=== PATIENT | female | born 1965 | race Caucasian/White ===

== ENCOUNTER 2020-02-25 09:44 | Day surgery (SDC) | payer OTHER ==
[2020-02-24 12:57] VITALS: BMI 25.6
[~2020-02-25 09:44] MED LIST: LACTATED RINGERS 1,000 ML IV SCH
[2020-02-25 10:07] VITALS: RESP 16; TEMP 98.4
[2020-02-25] MEDS ORDERED: LIDOCAINE 1% (10MG/ML) FOR IV START INTRADERMA ONE (10:10)
[2020-02-25 10:17] LABS: Glucose,Whole Blood 94 mg/dL (75-99)
[2020-02-25] MEDS ORDERED: MIDAZOLAM 2 MG/2 ML VIAL ONE (10:18)
[2020-02-25] MEDS ORDERED: IOPAMIDOL M200 10 ML VIAL ONE (10:18)
[2020-02-25] MEDS ORDERED: DEXAMETHASONE SOD PHOSPHATE 10 MG/ML 1 ML VIAL ONE (10:18)
[2020-02-25] MEDS ORDERED: fentaNYL (PF) 50 MCG/ML 2 ML AMP ONE (10:18)
--- NOTE | 2020-02-25 10:37 | P.PCN ---
Date of Procedure: 02/25/20 Surgeon: Vicente Albert Pathology: none sent Condition: stable Disposition: PACU Description of Procedure: PROCEDURE 1. Cervical epidural steroid injection under fluoroscopic guidance, C7-T1 Rt paramedian approach. 2. Cervical epidurogram. : PREOPERATIVE DIAGNOSIS: Cervical radiculopathy, cervical spondylosis without myelopathy POSTOPERATIVE DIAGNOSIS: : Same as above ANESTHESIA: Local anesthesia with 1% lidocaine and IV moderate conscious sedation with Versed and Fentanyl . EBL 0 PROCEDURE INDICATION: The patient with neck pain and radiculopathy unresponsive to conservative treatment consents for procedure. PROCEDURE DESCRIPTION / TECHNIQUE: The patient was seen and identified in the preoperative area. Risks, benefits, complications, including but not limited to infections ,bleeding , allergic reactions to the medications ,and not complete pain relief, and alternatives were discussed with the patient, the patient agreed to proceed with the procedure and signed the consent. Patient was taken to the OR and time out was completed. The patient was placed in the prone position on the procedure table. A pillow was placed under the patients chest to increase the flexion of the cervical spine . The cervical area was prepped and draped in the usual sterile fashion. Vital signs were closely monitored during the procedure. Conscious sedation was used during the procedure to decrease patients anxiety. Using anterior-posterior fluoroscopy, the C7-T1 interlaminar space was identified and the skin over this site was marked and then infiltrated with 1% lidocaine subcutaneously. Subsequently, a 20-gauge 3-1/2-inch Tuohy epidural needle was inserted and advanced toward the epidural space by means of loss of resistance to air technique and guided by AP and lateral fluoroscopy. The needle tip contacted the lamina of T1 vertebra first, then it was walked off bone and into the epidural space using the loss of to air and fluoroscopic guidance to identify the epidural space. The correct needle position in the epidural space was verified with the injection of 1 mL of the water soluble contrast dye Isovue and observing an excellent epidurogram with the epidural spread of the dye, after negative aspiration for blood and CSF and in the absence of paresthesias. Again after negative aspiration, I injected a 20 mg of Decadron. A washout of epidurogram was seen. Needle was withdrawn intact, skin was cleansed, and bandages were applied. A copy of the needle placement picture was saved to the fluoroscopy machine.
[2020-02-25] MEDS ORDERED: IV FLUID CONTINUATION 1,000 ML IV ONE (10:38)
--- NOTE | 2020-02-25 10:47 | FL ---
EXAMINATION TYPE: FL guided pain mgmt statistic DATE OF EXAM: 02/25/2020 HISTORY: Pain epidural injection was performed. 5 seconds of fluoroscopic time was provided by the department of r adiology.
[2020-02-25 10:56] VITALS: BP 124/68; PULSE 55
== END 2020-02-25 11:07 | disposition home or self-care (01) ==
LOC: ORPAIN 09:44
PROVIDERS: ATTEND Anesthesiology
DX: M47.12 Other spondylosis with myelopathy, cervical region (principal); I25.10 Atherosclerotic heart disease of native coronary artery without angina pectoris; E11.9 Type 2 diabetes mellitus without complications; F17.200 Nicotine dependence, unspecified, uncomplicated; Z90.710 Acquired absence of both cervix and uterus; Z79.02 Long term (current) use of antithrombotics/antiplatelets; Z88.1 Allergy status to other antibiotic agents
CPT/HCPCS: 62321; J2250; J1100; J3010; Q9966; 99152

== ENCOUNTER 2020-04-07 09:04 | Day surgery (SDC) | payer OTHER ==
[2020-04-06 10:35] VITALS: BMI 25.6
[2020-04-07 09:32] VITALS: RESP 16; TEMP 96.9
[2020-04-07] MEDS ORDERED: LIDOCAINE 1% (10MG/ML) FOR IV START INTRADERMA ONE (09:37)
[2020-04-07 09:39] LABS: Glucose,Whole Blood 125 mg/dL (75-99)
[2020-04-07] MEDS ORDERED: DEXAMETHASONE SOD PHOSPHATE 10 MG/ML 1 ML VIAL ONE (10:13)
[2020-04-07] MEDS ORDERED: MIDAZOLAM 2 MG/2 ML VIAL ONE (10:13)
[2020-04-07] MEDS ORDERED: IOPAMIDOL M200 10 ML VIAL ONE (10:13)
[2020-04-07] MEDS ORDERED: fentaNYL (PF) 50 MCG/ML 2 ML AMP ONE (10:13)
--- NOTE | 2020-04-07 10:30 | P.PCN ---
Date of Procedure: 04/07/20 Procedure(s) Performed: . PROCEDURE 1. Cervical epidural steroid injection under fluoroscopic guidance, C7-T1 (fluoroscopy images available in the radiology department ) 2. Cervical epidurogram. 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 3-,cervical spondylosis with cervical Facet arthropathy without myelopathy ANESTHESIA: Local anesthesia with lidocaine 1 % , and moderate sedation, with Versed 2 mg and Fentanyl 100 mcg. EBL 0 PROCEDURE INDICATION: The patient with neck pain and radiculitis unresponsive to conservative treatment consents for procedure. PROCEDURE DESCRIPTION / TECHNIQUE: The patient was seen and identified in the preoperative area. Risks, benefits, complications, including but not limited to infections ,bleeding , allergic reactions to the medications ,and not complete pain releife, and alternatives were discussed with the patient, the patient agreed to proceed with the procedure and signed the consent. Patient was taken to the OR and time out was completed. The patient was placed in the prone position on the procedure table. A pillow was placed under the patients chest to increase the cervical interlaminar space. The cervical area was prepped and draped in the usual sterile fashion. Vital signs were closely monitored during the procedure. Conscious sedation was used during the procedure to decrease patients anxiety. Using anterior-posterior fluoroscopy, the C7-T1 interlaminar space was identified and the skin over this site was marked and then infiltrated with 1% lidocaine subcutaneously. Subsequently, a 20-gauge 3-1/2-inch Tuohy epidural needle was inserted and advanced toward the epidural space by means of the ``navas nging-drop technique and guided by AP and lateral fluoroscopy. The correct needle position in the epidural space was verified with the injection of 2 mL of the water soluble contrast dye Isovue-200 and observing an excellent epidurogram with the epidural spread of the dye, after negative aspiration for blood and CSF and in the absence of paresthesias. Again after negative aspiration, mixture containing 20 mg Dexamethasone and 2 ml of preservative- free normal saline injected and a washout of epidurogram was seen. Needle was withdrawn intact, skin was cleansed, and bandages were applied. Complications= none. Disposition= patient was placed in supine position and transferred to the recovery room area in stable condition and there was no evidence of upper or lower extremity motor or sensory deficit after the procedure patient was discharged from recovery room after discharge criteria met and home discharge instructions was given by the staff and patient will follow with the pain clinic in 2-4 weeks
[2020-04-07] MEDS ORDERED: IV FLUID CONTINUATION 500 ML IV ONE (10:38)
[2020-04-07 10:55] VITALS: BP 113/58; PULSE 66
--- NOTE | 2020-04-07 14:23 | FL ---
EXAMINATION TYPE: FL guided pain mgmt statistic DATE OF EXAM: 04/07/2020 CLINICAL HISTORY: Neck pain. TECHNIQUE: Fluoroscopy. COMPARISON: None. FINDINGS: Fluoroscopic guidance was provided during pain relief procedure performed by Dr. Bustos . A total of 1 second of fluoroscopic time was utilized during the procedure and 1 spot images are a cquired. Single limits acquired shows needle localization with contrast injection near cervicothorac ic junction. IMPRESSION: As Above.
== END 2020-04-07 11:05 | disposition home or self-care (01) ==
LOC: ORPAIN 09:04
PROVIDERS: ATTEND Specialist
DX: M47.22 Other spondylosis with radiculopathy, cervical region (principal); M50.10 Cervical disc disorder with radiculopathy, unspecified cervical region; Z79.02 Long term (current) use of antithrombotics/antiplatelets; I25.10 Atherosclerotic heart disease of native coronary artery without angina pectoris; E11.9 Type 2 diabetes mellitus without complications; Z90.710 Acquired absence of both cervix and uterus; Z88.1 Allergy status to other antibiotic agents; Z88.8 Allergy status to other drugs, medicaments and biological substances; Z91.09 Other allergy status, other than to drugs and biological substances
CPT/HCPCS: 62321; J2250; J1100; J3010; Q9966; 99152

== ENCOUNTER → 2020-06-25 | Outpatient (CLI) | payer OTHER ==
[2020-06-25 12:08] LABS: HCT 36.7 % (34.0-46.0); HGB 11.8 gm/dL (11.4-16.0); MCHC 32.1 g/dL (31.0-37.0); MCV 96.5 fL (80.0-100.0); Mean Platelet Volume 7.1; Platelet Count 304 k/uL (150-450); RDW 13.6 % (11.5-15.5); WBC 12.7 k/uL (3.8-10.6)
[2020-06-25 12:17] LABS: Appearance,Urine Clear (Clear); Bilirubin,Urine Negative (Negative); Blood,Urine Negative (Negative); Color,Urine Light Yellow; Glucose,Urine (UA) Negative (Negative); Ketones,Urine Negative (Negative); Leukocyte Esterase,Urine Negative (Negative); Nitrite,Urine Negative (Negative); Protein,Urine Negative (Negative); Specific Gravity,Urine 1.006 (1.001-1.035); Urobilinogen,Urine <2.0 mg/dL (<2.0)
[2020-06-25 12:25] LABS: INR 0.9 (<1.2); Prothrombin Time 9.8 sec (9.0-12.0)
[2020-06-25 12:26] LABS: Partial Thromboplastin Time 25.5 sec (22.0-30.0)
[2020-06-25 12:33] LABS: Calcium 9.6 mg/dL (8.4-10.2); Potassium 4.7 mmol/L (3.5-5.1)
== END | disposition home or self-care (01) ==
LOC: LABPAT 11:24
PROVIDERS: ATTEND Orthopaedic Surgery Orthopaedic Surgery of the Spine
DX: Z01.818 Encounter for other preprocedural examination (principal); M48.02 Spinal stenosis, cervical region
CPT/HCPCS: 80048; 81003; 85027; 85610; 85730

== ENCOUNTER 2020-07-06 06:22 | Day surgery (SDC) | payer OTHER ==
[2020-06-05 14:34] VITALS: BMI 26.5
[~2020-07-06 06:22] MED LIST changes: +LIDOCAINE 1% (10MG/ML) FOR IV START INTRADERMA PRN; +ONDANSETRON 4 MG/2 ML VIAL IVP ONE; +ceFAZolin 1,000 MG in SODIUM CHLORIDE 0.9% IRRIGATIO 1,000 ML IRRIGATION PRN
[2020-07-06] MEDS ORDERED: HYDROmorphone 0.5 MG/0.5 ML SYRINGE IVP PRN ×2 (07:00→09:35)
[2020-07-06 07:02] LABS: Glucose,Whole Blood 135 mg/dL (75-99)
[2020-07-06 07:18] VITALS: RESP 16
[2020-07-06] MEDS ORDERED: fentaNYL (PF) 50 MCG/ML 2 ML AMP ONE (07:21)
[2020-07-06] MEDS ORDERED: ePHEDrine SULFATE/0.9% NACL/PF 50 MG/5 ML SYRINGE IV ONE (07:21)
[2020-07-06] MEDS ORDERED: SUCCINYLCHOLINE CHLORIDE 100 MG/5 ML SYR IV ONE (07:21)
[2020-07-06] MEDS ORDERED: DEXAMETHASONE SOD PHOSPHATE 10 MG/ML 1 ML VIAL ONE (07:21)
[2020-07-06] MEDS ORDERED: GLYCOPYRROLATE 0.2 MG/ML 2 ML VIAL ONE (07:21)
[2020-07-06] MEDS ORDERED: WATER FOR INJECTION, STERILE 10 ML VIAL IV ONE (07:21)
[2020-07-06] MEDS ORDERED: ROCURONIUM 10 MG/ML (5 ML VIAL) IV ONE (07:21)
[2020-07-06] MEDS ORDERED: NEOSTIGMINE 1 MG/ML 10 ML VIAL ONE (07:21)
[2020-07-06] MEDS ORDERED: KETAMINE 10 MG/ML 20 ML VIAL ONE (07:21)
[2020-07-06] MEDS ORDERED: LIDOCAINE 1% INJ 10MG/ML (20 ML MDV) ONE (07:21)
[2020-07-06] MEDS ORDERED: MIDAZOLAM 2 MG/2 ML VIAL ONE (07:21)
[2020-07-06] MEDS ORDERED: PROPOFOL 10 MG/ML 20 ML VIAL IV ONE (07:21)
[2020-07-06] MEDS ORDERED: BUPIVACAINE (PF) 0.25% 30 ML VIAL SQ ONE ×2 (07:55)
[2020-07-06] MEDS ORDERED: LIDOCAINE 2%-EPI 1:100,000 20 ML VIAL SQ ONE ×3 (07:55)
[2020-07-06] MEDS ORDERED: GELATIN SPONGE,ABSORB (LARGE) 1 EACH SPONGE MISCELLANE ONE (07:55)
[2020-07-06] MEDS ORDERED: THROMBIN (BOVINE) 5,000 UNIT VIAL TOPICAL ONE (07:55)
--- NOTE | 2020-07-06 08:27 | XR ---
EXAMINATION TYPE: XR cervical spine 1V DATE OF EXAM: 07/06/2020 COMPARISON: None HISTORY: Needle placement TECHNIQUE: Crosstable lateral cervical spine FINDINGS: There is a needle directed towards the C5-C6 disc level. Patient is intubated. IMPRESSION: 1. Intraoperative localization with needle directed towards the C5-6 level
[2020-07-06] MEDS ORDERED: LACTATED RINGERS 1,000 ML IV ONE (08:34)
--- NOTE | 2020-07-06 09:18 | XR ---
EXAMINATION TYPE: XR cervical spine 1V DATE OF EXAM: 07/06/2020 COMPARISON: 07/06/2020 earlier exam HISTORY: Cervical fusion TECHNIQUE: Stable lateral cervical spine FINDINGS: There is an anterior cervical C5-6. Patient is intubated. IMPRESSION: 1. Status post cervical fusion
[2020-07-06 09:35] VITALS: TEMP 97.7
[2020-07-06] MEDS ORDERED: ACETAMINOPHEN TAB 325 MG TAB PO PRN (09:35)
[2020-07-06] MEDS ORDERED: ONDANSETRON 4 MG/2 ML VIAL IVP PRN (09:35)
[2020-07-06] MEDS ORDERED: BENZOCAINE/MENTHOL LOZENG 1 EACH LOZENGE MUCOUS MEM PRN (09:35)
[2020-07-06] MEDS ORDERED: HYDROmorphone 1 MG/ML 1 ML SYRINGE IVP PRN (09:35)
[2020-07-06] MEDS ORDERED: HYDROcodone/APAP 5-325MG 1 EACH TAB PO PRN (09:35)
[2020-07-06] MEDS ORDERED: ALBUTEROL NEBULIZED 2.5 MG/3 ML INHALATION PRN (09:36)
[2020-07-06] MEDS ORDERED: traMADol 50 MG TAB PO PRN (09:36)
[2020-07-06] MEDS ORDERED: clonazePAM 0.5 MG TAB PO PRN (09:36)
[2020-07-06 09:39] LABS: Glucose,Whole Blood 190 mg/dL (75-99)
--- NOTE | 2020-07-06 09:43 | P.OP ---
Date of Procedure: 07/06/20 Preoperative Diagnosis: Cervical myelopathy, upper extremity weakness, cervical radiculopathy, cervical stenosis C5 6 C6 7, herniated nucleus pulposus C5 6 C6 7, degenerative disc disease Postoperative Diagnosis: Same Anesthesia: GETA Pathology: none sent Condition: stable Disposition: PACU Description of Procedure: BRIEF OPERATIVE NOTE Preoperative Diagnosis:Cervical myelopathy, upper extremity weakness, cervical radiculopathy, cervical stenosis C5 6 C6 7, herniated nucleus pulposus C5 6 C6 7, degenerative disc disease Postoperative Diagnosis:Cervical myelopathy, upper extremity weakness, cervical radiculopathy, cervical stenosis C5 6 C6 7, herniated nucleus pulposus C5 6 C6 7, degenerative disc disease Procedure: Anterior cervical decompression with discectomy and fusion C5 6 C6 7 Placement of interbody graft C5 6 C6 7 Application of anterior cervical plate C5 6 and 7 Surgeon: Dr. Cantu Flare Breaker: Owen Arguello is present throughout the entire the case persistence during positioning, dissection, exposure, visualization, and all crucial elements of the case as well as closure. Anesthesia: General anesthesia per Dr. Griffin Estimated blood loss: Approximately 75 mL Complications: None apparent Components implanted: K2M [place] anterior cervical plate system with 6 screws and Vikos interbody allograft bone graft with 1 mL of DBX bone putty Disposition: To recovery room in good stable condition. OPERATIVE INDICATIONS The patient has had long-standing issues in their neck and upper extremities. She did having worsening of her symptoms and some evidence of weakness to her upper extremities and evidence of early myelopathy. She has been having some troubles with her gait and her dexterity in her hands. She is found have severe stenosis at C5 6 and C6 7 disc herniation which collated with her myopathic and upper extremity radicular symptoms and neck pain. The patient has been through conservative treatment. She is having worsening despite conservative treatment and we had long discussions about treatment options and surgery. We also discussed the fact that the patient is a smoker and would need to abruptly stop smoking and need to continue to cease her nicotine for at least 6 months postoperatively and she agreed to this. We discussed various treatment options including surgery, and the patient wishes to proceed with surgery We discussed the risk, patient's alternatives and benefits of surgery including but not limited to, risk of bleeding risk of infection, risk of need for further surgery, risk of decreased, loss of motion, muscle function, malunion nonunion, hardware failure, nerve damage, paralysis, heart attack, and . OPERATIVE SUMMARY After discussing all the risks, patient alternatives and benefits at length, the patient elected to proceed with surgical intervention, signed informed consent, and presented for their procedure. The patient was seen and examined in the preoperative holding area and the surgical site was marked. The patient was given antibiotics and brought to the operating room. The patient was positioned on the operating room table in a supine position being careful to pad any bony prominences and pressure points. The patient was sedated and intubated by anesthesia in standard fashion. Once the airway and C- spine were stabilized the patient's arms were padded and tucked at her side, with her shoulders gently taped. The head was placed in a donut pad with the neck in good neutral alignment and position. We were careful to maintain the patient's cervical spine and good neutral alignment and position throughout. The patient was prepped and draped in a normal standard fashion. An appropriate timeout and keystone protocol performed. We were able to proceed with the surgery. The local wound area was infiltrated with local anesthetic. An incision was made transversely approximately 2-1/2 cm over the appropriate levels at C6. Dissection was taken down subcutaneously to the level of the platysma which was split in line with its fibers. Dissection was taken with a carotid approach, with the trachea and esophagus medial and the carotid sheath laterally. We dissected down to the anterior surface of the vertebral bodies. Intraoperative x-ray was taken which showed a marker at the appropriate level at C5 6. With the appropriate level positively confirmed, we were able to proceed with discectomy at the appropriate levels. All of the operative levels were exposed appropriately. The patient had all their twitches back, and there was no evidence of recurrent laryngeal issue. The wound was copiously irrigated and suctioned dry as had been done periodically throughout the case. At the appropriate level/levels, starting at C5 6 and then moving to C6 7 I established an annulotomy with an 11 blade scalpel. A discectomy was performed with a combination of pituitary rongeurs, curettes, a high-speed bur, and Kerrison rongeurs. The posterior longitudinal ligament was taken down as were any posterior osteophytes. There is large posterior disc herniation and scarring of the ligamentum to the anterior aspect of the dura. As able to release this been heavily some of the ligamentum intact to protect the dura. I was able get good decompression at the space. This gave good central and bilateral foraminal decompression. There is no evidence of any dural tear or leak. The endplates were prepared with a high-speed bur. With the endplates in good parallel position, I was able to size for the appropriate size interbody graft. The wound was irrigated and suctioned dry the graft was prepared and malleted into position. It had good alignment and position with the anterior surface flush wi th the anterior surface of the vertebral bodies. This was done similarly the appropriate levels first at C5 6 and then at C6 7. With the grafts intact, I was able to measure and contour and appropriate sized plate. The plate was positioned at the midline over the appropriate levels of C5 6 and 7. Screw holes were established with a hand drill and drill guide. Screws were placed in good alignment and position with excellent bony purchase. They were seated under the locking device. The construct was checked and found to be stable. Intraoperative x-ray was taken which showed good alignment and position of the implants at the appropriate levels. There was no evidence of any dural tear or leak. Good hemostasis was maintained. The wound was copiously irrigated and suctioned dry as had been done periodically throughout the case. The platysma was closed with absorbable suture. The subcutaneous tissue was closed. The subcuticular tissue was closed with absorbable suture. The wound was cleaned and dried and dressed appropriately. A soft cervical collar was placed appropriately. The patient was woken up by anesthesia, extubated, transferred back gently to their hospital bed and brought to the recovery room in good stable condition. The patient will be admitted to the hospital for appropriate postoperative care, medical management and monitoring. We will continue to follow them closely about the postoperative course.
[2020-07-06] MEDS ORDERED: SODIUM CHLORIDE 0.9% 1,000 ML IV SCH (09:45)
[2020-07-06] MEDS ORDERED: CYCLOBENZAPRINE 10 MG TAB PO SCH (09:45)
[2020-07-06 10:03] VITALS: PULSE 74
[2020-07-06 14:29] VITALS: BP 133/68
[2020-07-06] MEDS ORDERED: BALSALAZIDE DISODIUM 750 MG CAPSULE PO SCH (16:00)
[2020-07-06] MEDS ORDERED: GABAPENTIN 300 MG CAP PO SCH (21:00)
[2020-07-06] MEDS ORDERED: diphenhydrAMINE 25 MG CAP PO SCH (21:00)
[2020-07-06] MEDS ORDERED: metFORMIN 500 MG TAB PO SCH (21:00)
[2020-07-06] MEDS ORDERED: METOPROLOL TARTRATE 12.5 MG TAB PO SCH (21:00)
[2020-07-06] MEDS ORDERED: PRAMIPEXOLE 0.25 MG TAB PO SCH (21:00)
[2020-07-06] MEDS ORDERED: MONTELUKAST 10 MG TAB PO SCH (21:00)
[2020-07-06] MEDS ORDERED: TOPIRAMATE 25 MG TAB PO SCH (21:00)
[2020-07-07] MEDS ORDERED: ASPIRIN 81 MG PO SCH (09:00)
[2020-07-07] MEDS ORDERED: SENNOSIDES-DOCUSATE SODIUM 1 EACH TAB PO SCH ×2 (09:00)
[2020-07-07] MEDS ORDERED: FOLIC ACID 1 MG TAB PO SCH (09:00)
[2020-07-07] MEDS ORDERED: CLOPIDOGREL 75 MG TAB PO SCH (09:00)
[2020-07-07] MEDS ORDERED: FLUoxetine HCL 10 MG CAP PO SCH (09:00)
[2020-07-07] MEDS ORDERED: ATORVASTATIN 40 MG TAB PO SCH (09:00)
[2020-07-07] MEDS ORDERED: OXYBUTYNIN 15 MG TAB.ER.24 PO SCH (09:00)
[2020-07-07] MEDS ORDERED: CALCIUM CARB-VIT D 500 MG-5 MCG TAB PO SCH (09:00)
[2020-07-07] MEDS ORDERED: MULTIVITAMINS, THERA 1 EACH TAB PO SCH (09:00)
[2020-07-07] MEDS ORDERED: CHOLECALCIFEROL 25 MCG (1000 IU) TABLET PO SCH (09:00)
== END 2020-07-06 14:42 | disposition home or self-care (01) ==
LOC: OR 06:22 → 6NMEDSUR 09:50 → OR 14:42
PROVIDERS: ATTEND Orthopaedic Surgery Orthopaedic Surgery of the Spine
DX: M48.02 Spinal stenosis, cervical region (principal); M50.022 Cervical disc disorder at C5-C6 level with myelopathy; M50.00 Cervical disc disorder with myelopathy, unspecified cervical region; M50.10 Cervical disc disorder with radiculopathy, unspecified cervical region; M50.122 Cervical disc disorder at C5-C6 level with radiculopathy; M25.78 Osteophyte, vertebrae; I11.9 Hypertensive heart disease without heart failure; E78.00 Pure hypercholesterolemia, unspecified; E78.5 Hyperlipidemia, unspecified; I25.10 Atherosclerotic heart disease of native coronary artery without angina pectoris; E11.51 Type 2 diabetes mellitus with diabetic peripheral angiopathy without gangrene; F17.218 Nicotine dependence, cigarettes, with other nicotine-induced disorders; K21.9 Gastro-esophageal reflux disease without esophagitis; H91.90 Unspecified hearing loss, unspecified ear; Z97.3 Presence of spectacles and contact lenses; F32.9 Major depressive disorder, single episode, unspecified; J98.4 Other disorders of lung; M19.90 Unspecified osteoarthritis, unspecified site; M06.9 Rheumatoid arthritis, unspecified; M79.7 Fibromyalgia; R26.81 Unsteadiness on feet; J45.909 Unspecified asthma, uncomplicated; Z87.11 Personal history of peptic ulcer disease; Z85.41 Personal history of malignant neoplasm of cervix uteri; Z95.1 Presence of aortocoronary bypass graft; Z90.710 Acquired absence of both cervix and uterus; Z83.3 Family history of diabetes mellitus; Z82.49 Family history of ischemic heart disease and other diseases of the circulatory system; Z79.891 Long term (current) use of opiate analgesic; Z79.84 Long term (current) use of oral hypoglycemic drugs; Z79.02 Long term (current) use of antithrombotics/antiplatelets; Z79.82 Long term (current) use of aspirin; Z79.899 Other long term (current) drug therapy; Z88.1 Allergy status to other antibiotic agents; Z88.8 Allergy status to other drugs, medicaments and biological substances; Z88.6 Allergy status to analgesic agent
CPT/HCPCS: 72020; 22551; 22552; 20931; 22845; C1713 ×2; C1762 ×2; J0690 ×2; J2405; J1170; 86850; 86900; 86901

== ENCOUNTER → 2022-02-16 | Outpatient (CLI) | payer OTHER ==
[2022-02-16 10:07] VITALS: BP 134/75; PULSE 73; RESP 16
--- NOTE | 2022-02-16 14:09 | P.PAINPG ---
Objective - Vital Signs Vital signs: Intake & Output 02/15/22 02/16/22 02/16/22 18:59 06:59 18:59 Weight 65.771 kg PQRS Measure Charge Sheet Comment: A 56 yr old female with a history of severe and chronic neck and lower pain secondary to cervical and lumbar degenerative disc diseases and spondylosis with facet arthropathy without myelopathy presents today for an evaluation. Pain level is currently at 7/10 in intensity, intermittent, localized in lumbar spi ne, dull/ achy in character w shooting towards the LEs. Pain is provoked by bending/twisting. Pain is alleviated with (Neurontin, Excedrin), hot baths, +CBD, repositioning and rest. Interventional pain procedures completed include LAVELL C7-T1 (2019) Patient is currently on Neurontin, Excedrin. Patient denies any side effects of the medication(s), denies excessive drowsiness or sleepiness, denies suicidal ideation and reports that the current pain medication is helping to control the pain and improve activities of daily living. Patient denies any motor or sensory deficits. Patient denies any fever or night sweats, denies any change in the bowel movements or urination. Physical Examination: -Constitutional: Cooperative. Not in acute distress . - Neurologic: Cranial nerve II to XII intact. No focal neurological deficits. - Psychatric: Alert & oriented x 3. Matching mood & appropriate affect. Judgment and insight intact. - Musculoskeletal: Cervical spine: Muscle bulk/ tone/ strength in the bilateral upper extremities normal Vertebral body tenderness to palpation over Spurling test positive Distraction test positive Facet loading test positive Thoracic spine Muscle bulk / tone/ strength in the bilateral paraspinal muscles normal Vertebral body tender to palpation over Facet loading test positive Lumbar spine: Motor bulk/ tone/ strength lower extremities , thigh and legs : 5/5 Deep tendon reflexes : Normal Knee Jerk. Normal Ankle Jerk . Vertebral body tenderness to palpation over L5 Lumbar Facet Loading Test positive Straight Leg Raise: positive at 30 degrees right side/ left side Gaenslen's Test positive Sacral spine : Severe tenderness over the Sacroiliac joint: right side / left side Range of motion: Flexion of the lumbar spine <60 degrees Range of motion: Extension of the lumbar spine <20 degrees Gaenslen's Test positive Bairon's Test positive Evelin test: positive right side / left side Thigh Thrust Test Sacral Thrust Test Assessment and plan: Chronic neck & lumbar pain secondary to cervical and lumbar degenerative disc disease , spondylosis with facet arthropathy without myelopathy Recommendation of MRI without contrast of the lumbar spine re: M51.36. Last MRI on file is form 2018. Would benefit from LAVELL L5-S1. Risks, benefits of procedure discussed and pt verbalized understanding. Admits to anticoagulant use or medical history of diabetes. Protocol for discontinuation/ continuation of medications ju procedure discussed. All patient questions answered I have spent less than 30 minutes on patient care today. Dr Bustos was available by phone for the evaluation of this patient. The time was used to review the medical records including relevant urine studies and Prescription history (MAPs), review of the available imaging, evaluation and examination of the patient, coordination of care with the medical staff and if applicable referring physicians, as well as creation of the medical record - Pain Location Lower Back Non-Pharmacological Interventions: Heat, Inactivity Pharmacological Interventions: PRN Medication, Scheduled Medication, Topical Medication PQRS Narrative: Smoking Status Current every day smoker Pain Intensity [Lower Back] 8 Scale Used Numeric (1 - 10) Hx Alcohol Use (MH) No Home Medications: Ambulatory Orders Albuterol Inhaler [Ventolin Hfa Inhaler] 2 puff INHALATION Q4H PRN 08/19/14 Aspirin EC [Ecotrin Low Dose] 81 mg PO BID 08/19/14 Cholecalciferol [Vitamin D3 (25 Mcg = 1000 Iu)] 2,000 unit PO DAILY 08/19/14 Folic Acid 1 mg PO DAILY 08/19/14 Montelukast [Singulair] 10 mg PO HS 08/19/14 diphenhydrAMINE [Benadryl] 25 mg PO HS 08/19/14 Clopidogrel [Plavix] 75 mg PO DAILY 09/24/14 Atorvastatin Calcium [Lipitor] 40 mg PO DAILY 02/05/20 Calcium Carbonate/Vitamin D3 [Calcium 600 mg-Vit D3 10Mcg (400 Unit)] 1 each PO DAILY 02/05/20 FLUoxetine HCL [PROzac] 30 mg PO DAILY 02/05/20 Metoprolol Tartrate [Lopressor] 12.5 mg PO BID 02/05/20 Multivit with Calcium,Iron,Min [Women's Multivitamin] 1 each PO DAILY 02/05/20 Oxybutynin Chloride [Oxybutynin Chloride ER] 15 mg PO DAILY 02/05/20 Pramipexole [Mirapex] 0.25 mg PO BID 02/05/20 Topiramate [Trokendi Xr] 100 mg PO HS 02/05/20 metFORMIN HCL [Glucophage Xr] 500 mg PO BID 02/05/20 Aspirin/Acetaminophen/Caffeine [Excedrin Migraine Caplet] 1 each PO DIRECTED PRN 02/24/20 Gabapentin [Neurontin] 600 mg PO BID 02/24/20 Orphenadrine [Norflex] 100 mg PO Q12H 02/24/20 clonazePAM [KlonoPIN] 0.5 mg PO BID PRN 02/24/20 Cranberry Fruit [Cranberry] 465 mg PO DAILY 02/15/22 Famotidine [Pepcid] 20 mg PO BID 02/15/22 Mesalamine [Lialda] 2.4 gm PO BID 02/15/22 traZODone HCL [Desyrel] 50 mg PO HS 02/15/22 Controlled Substance Measures - Controlled Substance Measures Is patient prescribed a controlled substance at discharge?: No
== END ==
LOC: PNWHC3 09:42
PROVIDERS: ATTEND Specialist
DX: M50.30 Other cervical disc degeneration, unspecified cervical region (principal); M47.812 Spondylosis without myelopathy or radiculopathy, cervical region; M47.816 Spondylosis without myelopathy or radiculopathy, lumbar region; M51.36 Other intervertebral disc degeneration, lumbar region; Z88.1 Allergy status to other antibiotic agents; Z88.8 Allergy status to other drugs, medicaments and biological substances; F17.200 Nicotine dependence, unspecified, uncomplicated
CPT/HCPCS: 99211

== ENCOUNTER 2022-03-25 09:54 | Day surgery (SDC) | payer OTHER ==
[2022-03-22 11:01] VITALS: BMI 26.5
[~2022-03-25 09:54] MED LIST changes: +ALPRAZolam 0.25 MG TAB PO PRN; +ALPRAZolam 0.5 MG TAB PO PRN; +ASPIRIN 325 MG TAB PO STA; +ATORVASTATIN 80 MG TAB PO STA; +HEPARIN SODIUM,PORCINE 10,000 UNIT in SODIUM CHLORIDE 0.9% 1,000 ML IRRIGATION PRN; +HEPARIN SODIUM,PORCINE 2,500 UNIT in SODIUM CHLORIDE 0.9% 250 ML IRRIGATION PRN; -LACTATED RINGERS 1,000 ML IV SCH; -LIDOCAINE 1% (10MG/ML) FOR IV START INTRADERMA PRN; +NITROGLYCERIN SL TABS 0.4 MG TAB SUBLINGUAL PRN; -ONDANSETRON 4 MG/2 ML VIAL IVP ONE; +SODIUM CHLORIDE 0.9% 1,000 ML in EMPTY BAG 1 BAG IV SCH; -ceFAZolin 1,000 MG in SODIUM CHLORIDE 0.9% IRRIGATIO 1,000 ML IRRIGATION PRN
[2022-03-25 10:36] LABS: Glucose,Whole Blood 177 mg/dL (70-110)
[2022-03-25 10:45] LABS: Basophils # (A) 0.1 k/uL (0-0.2); Basophils % (A) 1 %; Eosinophils # (A) 0.8 k/uL (0-0.7); Eosinophils % (A) 8 %; HCT 37.8 % (34.0-46.0); HGB 12.3 gm/dL (11.4-16.0); Lymphocytes # (A) 3.6 k/uL (1.0-4.8); Lymphocytes % (A) 33 %; MCHC 32.5 g/dL (31.0-37.0); MCV 95.4 fL (80.0-100.0); Mean Platelet Volume 7.7; Monocytes # (A) 0.5 k/uL (0-1.0); Monocytes % (A) 5 %; Neutrophils # (A) 5.6 k/uL (1.3-7.7); Neutrophils % (A) 51 %; Platelet Count 299 k/uL (150-450); RBC 3.96 m/uL (3.80-5.40); RDW 12.8 % (11.5-15.5)
[2022-03-25 10:53] LABS: Calcium 8.9 mg/dL (8.4-10.2); Potassium 4.1 mmol/L (3.5-5.1)
[2022-03-25] MEDS ORDERED: MIDAZOLAM 2 MG/2 ML VIAL IVP ONE (12:23)
[2022-03-25] MEDS ORDERED: FLUMAZENIL 0.1 MG/ML 5 ML VIAL IVP ONE ×4 (12:29→15:33)
[2022-03-25] MEDS ORDERED: HYDROmorphone 1 MG/ML 1 ML SYRINGE ONE (12:34)
[2022-03-25] MEDS ORDERED: LIDOCAINE 1% INJ 10MG/ML (30 ML VIAL-PF) SQ ONE (12:36)
[2022-03-25] MEDS ORDERED: HYDROmorphone 1 MG/ML 1 ML SYRINGE IVP ONE (12:36)
[2022-03-25] MEDS ORDERED: HEPARIN SODIUM 1,000 UN/ML (10ML VL) ONE (12:55)
[2022-03-25] MEDS ORDERED: HEPARIN SODIUM 1,000 UN/ML (10ML VL) IVP ONE (12:57)
[2022-03-25] MEDS ORDERED: NITROGLYCERIN 1000MCG/10ML SYRINGE INTRAARTER ONE (13:25)
[2022-03-25] MEDS ORDERED: CLOPIDOGREL 75 MG TAB ONE (13:28)
[2022-03-25] MEDS ORDERED: FLUoxetine HCL 10 MG CAP PO PRN (13:29)
[2022-03-25] MEDS ORDERED: ASPIRIN-ACET-CAFF 250-250-65MG 1 EACH TAB PO PRN (13:29)
[2022-03-25] MEDS ORDERED: ALBUTEROL NEBULIZED 2.5 MG/3 ML INHALATION PRN (13:29)
[2022-03-25] MEDS ORDERED: clonazePAM 0.5 MG TAB PO PRN (13:29)
[2022-03-25] MEDS ORDERED: CLOPIDOGREL 75 MG TAB PO ONE (13:30)
[2022-03-25] MEDS ORDERED: IOPAMIDOL-370 125ML BTL INJ ONE (13:30)
[2022-03-25] MEDS ORDERED: NON FORMULARY DRUG (Omalizumab 150 MG Each) SQ SCH (13:30)
[2022-03-25] MEDS ORDERED: MAG HYDROX/AL HYDROX/SIMETH 30 ML CUP PO PRN (13:31)
[2022-03-25] MEDS ORDERED: ZOLPIDEM 5 MG TAB PO PRN (13:31)
[2022-03-25] MEDS ORDERED: ATROPINE SULFATE 0.1 MG/ML 10ML SYRINGE IV PRN (13:31)
[2022-03-25] MEDS ORDERED: SODIUM CHLORIDE 0.9% 1,000 ML IV SCH (15:00)
[2022-03-25] MEDS ORDERED: NALOXONE 0.4 MG/ML 1 ML VIAL IVP PRN (16:09)
[2022-03-25 17:24] LABS: Glucose,Whole Blood 127 mg/dL (70-110)
[2022-03-25] MEDS: NICOTINE 7MG/24HR PATCH TRANSDERM SCH (18:29)
[2022-03-25] MEDS: INSULIN ASPART (NovoLOG) 100 UNIT/ML VIAL SQ SCH ×2 (18:44→21:07)
--- NOTE | 2022-03-25 18:55 | P.PCN ---
Date of Procedure: 03/25/22 Operative Findings: CARDIAC CATHETERIZATION AND PERCUTANEOUS CORONARY INTERVENTION PERFORMING PHYSICIAN: Moses Richardson MD, [facility] PROCEDURE PERFORMED: 1. Selective right and left coronary angiogram. STEWART to LAD angiogram. SVG to LCx angiogram. 2. Left heart catheterization 3. Successful stenting of proximal RCA using 3.5 x 23 mm Xience SHAR which with an excellent angiographic results 4. An atherectomy of the right coronary artery 5. Selective right common femoral artery angiogram 6. Ultrasound-guided access of the right common femoral artery 7. Successful placement of transvenous pacemaker from the right common femoral vein 8 Gradient measurement across the left subclavian artery. INDICATION: This is a 56-year-old female patient was coronary artery disease and status post CABG where she received STEWART to LAD and SVG to LCx unknown intermediate coronary artery disease involving the proximal right coronary artery identified on heart catheterization in 2014, continues to have chest discomfort with exertion concerning for angina and in the light of that heart catheterization was advised COMPLICATION: None APPROACH: Right common femoral artery LEVEL OF SEDATION: Moderate with the sedation time off 40 minutes PROCEDURE DESCRIPTION: After obtaining an informed consent the patient was brought to the cardiac director of cardiac cath lab. The right common femoral artery was cannulated using micropuncture technique under ultrasound guidance, micro-puncture wire passed easily then I placed a 6-Togolese sheath. After that I did selective left and right coronary angiogram. Selective left coronary angiogram was performed using JL4 catheter. Selective right coronary angiogram was performed using JR4 catheter. After that I did STEWART to LAD angiogram using JR4 catheter and also SVG to LCx angiogram using JR4 catheter as well. Left heart catheterization was performed using the JR4 catheter which cross the aortic valve then I did pulled back across the valve. After that I did the gradient measurement across the left subclavian. I did perform that because there was some difficulties advancing the catheter across the ostial left subclavian associated was dampening in the pressure waveform concerning for severe disease involving the ostial left subclavian. That the gradient came in to be around 16 mmHg. After that I did intervene on the right coronary artery. The procedure was completed without any complication SELECTIVE CORONARY ANGIOGRAM: The right coronary artery: Caliber vessel and is a dominant vessel. The proximal RCA is calcified with eccentric lesion and ulcerated plaque appears to be in the range of 80%. The mid RCA has mild disease only. The RCA distally appeared to have intermediate diffuse disease up to about 50%. After that bifurcates into PDA and PLV branch es both appear to have mild disease only. Left main: Is calcified with intermediate disease appears to be in the range of 50%. Bifurcates into a LCx and LAD The left circumflex: Medium caliber vessel and nondominant vessel. It is diffusely diseased up to about 70-80%. The left anterior descending artery: Large caliber vessel. The proximal LAD has a critical disease. Coronary bypasses angiogram: The STEWART to LAD is patent. Please note that the ostial left subclavian has 60 mm gradient The SVG to LCx is patent HEMODYNAMICS: The LVEDP was about 14 mmHg was no significant gradient across aortic valve PCI OF THE RCA: Anticoagulation was initiated using heparin with continuous ECG monitoring throughout the case. I did engage the right coronary artery using JL4 he 0.5 guiding catheter and that was a short tip guiding catheter. Anticoagulation was initiated using heparin with continuous ACT monitoring. I did where the RCA using a run-through wire. Attempted balloon angioplasty using 3.0 x 12 mm balloon was unsuccessful to open the lesion in the proximal right coronary artery in spite of going to about 16 rachel. At that point I decided to switch to atherectomy. At that point I did place a transvenous temporary pacemaker in the right ventricle where the right common femoral vein was cannulated then I did place a 6-Togolese sheath in the right common femoral vein. Then under fluoroscopy guidance I did advanced a temporary pacemaker to the right ventricle where the pacemaker was set up at a backup heart rate of 60. Subsequently I did wire the RCA using the atherectomy wire. The wire was advanced in the PDA branch of the right coronary artery. After that I did advance the atherectomy device over the atherectomy wire to the proximal RCA where I did to runs under low-speed and one run under high-speed. Subsequently I did balloon angioplasty of the RCA distally using 3.5 x 15 mm noncompliant balloon and under 16 rachel I was able to open the right coronary artery. After that I deployed 3.5 x 23 mm stent where the stent was positioned under fluoroscopy guidance and deployed under its nominal pressure. The following angiogram showed excellent angiographic results and the procedure was completed without any complication CONCLUSION: Severe triple-vessel CAD. Patent STEWART to LAD but the ostial left subclavian has a critical disease with a gradient across it 60 mmHg Patent SVG to LCx Critical disease involving the proximal RCA which is unprotected. I performed successful stenting of the RCA with adjunctive use of atherectomy. POSTPROCEDURE MANAGEMENT: #1 dual antiplatelet therapy using aspirin and Plavix for at least 12 months #2 consider balloon angioplasty and stenting of the ostial left subclavian #3 follow-up with the patient
[2022-03-25 20:49] LABS: Glucose,Whole Blood 229 mg/dL (70-110)
[2022-03-25] MEDS ORDERED: MONTELUKAST 10 MG TAB PO SCH (21:00)
[2022-03-25] MEDS ORDERED: traZODone HCL 100 MG TAB PO SCH (21:00)
[2022-03-25] MEDS ORDERED: diphenhydrAMINE 25 MG CAP PO SCH (21:00)
[2022-03-25] MEDS ORDERED: GABAPENTIN 400 MG CAP PO SCH (21:00)
[2022-03-25] MEDS: TOPIRAMATE 25 MG TAB PO SCH (21:07)
[2022-03-25] MEDS: FAMOTIDINE 20 MG TAB PO SCH (21:07)
[2022-03-25] MEDS: ASPIRIN 81 MG PO SCH (21:07)
[2022-03-25] MEDS: PRAMIPEXOLE 0.5 MG TAB PO SCH (21:07)
[2022-03-25] MEDS: CYCLOBENZAPRINE 10 MG TAB PO SCH (21:08)
[2022-03-26 05:37] LABS: Glucose,Whole Blood 171 mg/dL (70-110)
[2022-03-26] MEDS: INSULIN ASPART (NovoLOG) 100 UNIT/ML VIAL SQ SCH (05:37)
[2022-03-26 06:34] LABS: Basophils # (A) 0.1 k/uL (0-0.2); Basophils % (A) 1 %; Eosinophils # (A) 0.7 k/uL (0-0.7); Eosinophils % (A) 10 %; HCT 37.9 % (34.0-46.0); Hypochromasia Slight; Lymphocytes # (A) 2.9 k/uL (1.0-4.8); Lymphocytes % (A) 39 %; MCH 30.7 pg (25.0-35.0); MCHC 31.6 g/dL (31.0-37.0); MCV 97.2 fL (80.0-100.0); Mean Platelet Volume 7.8; Monocytes # (A) 0.4 k/uL (0-1.0); Monocytes % (A) 6 %; Neutrophils # (A) 3.2 k/uL (1.3-7.7); Neutrophils % (A) 43 %; Platelet Count 262 k/uL (150-450); RDW 12.8 % (11.5-15.5); WBC 7.4 k/uL (3.8-10.6)
[2022-03-26 06:49] LABS: African American GFR (CKD) >90 (>60 ml/min/1.73 sqM); Anion Gap 4 mmol/L; Blood Urea Nitrogen 10 mg/dL (7-17); Calcium 8.6 mg/dL (8.4-10.2); Carbon Dioxide 26 mmol/L (22-30); Chloride 109 mmol/L (98-107); Glucose 165 mg/dL (74-99); Non-African American GFR(CKD) 86 (>60 ml/min/1.73 sqM); Sodium 139 mmol/L (137-145)
[2022-03-26] MEDS ORDERED: BALSALAZIDE DISODIUM 750 MG CAPSULE PO SCH (09:00)
[2022-03-26] MEDS ORDERED: CRANBERRY PO SCH (09:00)
[2022-03-26] MEDS ORDERED: MULTIVITAMINS, THERA 1 EACH TAB PO SCH (09:00)
[2022-03-26] MEDS ORDERED: METOPROLOL TARTRATE 25 MG TAB PO SCH (09:00)
[2022-03-26] MEDS ORDERED: FOLIC ACID 1 MG TAB PO SCH (09:00)
[2022-03-26] MEDS ORDERED: CLOPIDOGREL 75 MG TAB PO SCH (09:00)
[2022-03-26] MEDS ORDERED: ATORVASTATIN 40 MG TAB PO SCH (09:00)
[2022-03-26] MEDS ORDERED: VITAMIN C PO SCH (09:00)
[2022-03-26] MEDS ORDERED: GABAPENTIN 300 MG CAP PO SCH (09:00)
[2022-03-26] MEDS ORDERED: CHOLECALCIFEROL 25 MCG (1000 IU) TABLET PO SCH (09:00)
[2022-03-26 09:12] VITALS: BP 114/64; PULSE 74; RESP 16; TEMP 98.1
[2022-03-26] MEDS: FAMOTIDINE 20 MG TAB PO SCH (09:40)
[2022-03-26] MEDS: CYCLOBENZAPRINE 10 MG TAB PO SCH (09:40)
[2022-03-26] MEDS: TOPIRAMATE 25 MG TAB PO SCH (09:41)
[2022-03-26] MEDS: ASPIRIN 81 MG PO SCH (09:41)
[2022-03-26] MEDS: PRAMIPEXOLE 0.5 MG TAB PO SCH (09:42)
[2022-03-26] MEDS: NICOTINE 7MG/24HR PATCH TRANSDERM SCH (09:43)
== END 2022-03-26 11:10 | disposition home or self-care (01) ==
LOC: CATHCVL 09:54 → 6NMEDSUR 13:39 → CATHCVL 03-26 11:10
PROVIDERS: ATTEND Internal Medicine Interventional Cardiology
DX: I25.10 Atherosclerotic heart disease of native coronary artery without angina pectoris (principal); I10 Essential (primary) hypertension; E78.5 Hyperlipidemia, unspecified; E11.9 Type 2 diabetes mellitus without complications; F17.200 Nicotine dependence, unspecified, uncomplicated; Z95.0 Presence of cardiac pacemaker; Z95.1 Presence of aortocoronary bypass graft; Z82.49 Family history of ischemic heart disease and other diseases of the circulatory system; Z79.899 Other long term (current) drug therapy
CPT/HCPCS: 93459; 80048 ×2; 85025 ×2; S4990; J2250; J2310; J2001; J1644; J1170; Q9967

== ENCOUNTER 2022-04-20 06:59 | Day surgery (SDC) | payer OTHER ==
[~2022-04-20 06:59] MED LIST changes: -ASPIRIN 325 MG TAB PO STA; -ATORVASTATIN 80 MG TAB PO STA; -HEPARIN SODIUM,PORCINE 10,000 UNIT in SODIUM CHLORIDE 0.9% 1,000 ML IRRIGATION PRN; -HEPARIN SODIUM,PORCINE 2,500 UNIT in SODIUM CHLORIDE 0.9% 250 ML IRRIGATION PRN; -SODIUM CHLORIDE 0.9% 1,000 ML in EMPTY BAG 1 BAG IV SCH
[2022-04-20] MEDS ORDERED: SODIUM CHLORIDE 0.9% 1,000 ML IV ONE (07:13)
[2022-04-20 07:30] LABS: Glucose,Whole Blood 239 mg/dL (70-110)
[2022-04-20] MEDS: SODIUM CHLORIDE 0.9% 1,000 ML in EMPTY BAG 1 BAG IV SCH (07:40)
[2022-04-20] MEDS ORDERED: INSULIN ASPART (NovoLOG) 100 UNIT/ML VIAL SQ ONE (07:40)
[2022-04-20 07:44] LABS: Basophils # (A) 0.1 k/uL (0-0.2); Basophils % (A) 1 %; Eosinophils # (A) 0.9 k/uL (0-0.7); Eosinophils % (A) 9 %; HCT 39.4 % (34.0-46.0); Lymphocytes # (A) 3.7 k/uL (1.0-4.8); Lymphocytes % (A) 38 %; MCH 31.4 pg (25.0-35.0); MCV 95.2 fL (80.0-100.0); Mean Platelet Volume 7.7; Monocytes # (A) 0.6 k/uL (0-1.0); Monocytes % (A) 6 %; Neutrophils # (A) 4.3 k/uL (1.3-7.7); Neutrophils % (A) 44 %; Platelet Count 320 k/uL (150-450); RBC 4.14 m/uL (3.80-5.40); RDW 12.6 % (11.5-15.5); WBC 9.8 k/uL (3.8-10.6)
[2022-04-20 08:17] LABS: African American GFR (CKD) >90 (>60 ml/min/1.73 sqM); Anion Gap 7 mmol/L; Blood Urea Nitrogen 15 mg/dL (7-17); Calcium 8.4 mg/dL (8.4-10.2); Carbon Dioxide 20 mmol/L (22-30); Chloride 110 mmol/L (98-107); Glucose 247 mg/dL (74-99); Non-African American GFR(CKD) 90 (>60 ml/min/1.73 sqM); Sodium 137 mmol/L (137-145)
[2022-04-20 08:22] LABS: Potassium 4.1 mmol/L (3.5-5.1)
[2022-04-20] MEDS ORDERED: HEPARIN SODIUM 1,000 UN/ML (10ML VL) ONE (09:23)
[2022-04-20] MEDS ORDERED: HYDROmorphone 1 MG/ML 1 ML SYRINGE IVP ONE (09:54)
[2022-04-20] MEDS ORDERED: LIDOCAINE 1% INJ 10MG/ML (30 ML VIAL-PF) SQ ONE (09:54)
[2022-04-20] MEDS: HEPARIN SODIUM 1,000 UN/ML (10ML VL) IV ONE ×2 (10:02→10:17)
[2022-04-20] MEDS ORDERED: ASPIRIN-ACET-CAFF 250-250-65MG 1 EACH TAB PO PRN (10:53)
[2022-04-20] MEDS ORDERED: FLUoxetine HCL 20 MG CAP PO PRN (10:53)
[2022-04-20] MEDS ORDERED: ALBUTEROL NEBULIZED 2.5 MG/3 ML INHALATION PRN (10:53)
[2022-04-20] MEDS ORDERED: clonazePAM 0.5 MG TAB PO PRN (10:53)
[2022-04-20] MEDS ORDERED: IOPAMIDOL-250 100ML BTL INTRAARTER ONE (10:55)
[2022-04-20] MEDS ORDERED: NALOXONE 0.4 MG/ML 1 ML VIAL IVP PRN (10:55)
[2022-04-20] MEDS ORDERED: FLUoxetine HCL 10 MG CAP PO PRN (10:58)
[2022-04-20] MEDS ORDERED: SODIUM CHLORIDE 0.9% 1,000 ML in EMPTY BAG 1 BAG IV SCH (11:00)
[2022-04-20] MEDS ORDERED: NON FORMULARY DRUG (Omalizumab 150 MG Each) SQ SCH (11:00)
--- NOTE | 2022-04-20 11:01 | P.PCN ---
Date of Procedure: 04/20/22 Operative Findings: PERCUTANEOUS PERIPHERAL INTERVENTION Performing physician Moses Richardson M.D. 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 Approach Right common femoral artery Complications None Level of sedation Moderate with a sedation time of 57 minutes Procedure description After obtaining an informed consent the patient was brought to the cardiac union laborer. The right common femoral artery was cannulated using micropuncture technique under ultrasound guidance, the micropuncture wire passed easily then I placed a 6-Mozambican 11 cm sheath at the right common femoral artery. After that anticoagulation was initiated using heparin with continuous ACT monitoring. Subsequently I did engage the left subclavian using a Howard right catheter. An 035 wire was advanced all the way to distal left subclavian artery subsequent did exchange my 11 cm sheath into a 90 cm sheath using 035 wire. The sheath was parked at the ostial left subclavian. After that I did exchange my 035 wire into all 4 wire using 035 catheters. I did intravascular ultrasound which showed a diameter of the left subclavian of about 90 mm. After that I exchanged my wire into 035 wire. I did balloon angioplasty using 6 mm balloon before I deployed a 8.0 x 29 mm stent where the stent was positioned under fluoroscopy guidance and deployed under 12 rachel for 20 seconds. The following angiogram showed an excellent angiographic results. By the end the patient has great left radial pulse. After that I did exchange my long sheath into short sheath using 035 wire and I did selective right common femoral artery angiogram. The procedure was completed with no complication Postprocedure management #1 dual antiplatelet therapy #2 aggressive cholesterol control #3 risk factors modification #4 follow-up with the patient
[2022-04-20] MEDS: NICOTINE 21MG/24HR PATCH TRANSDERM SCH (14:55)
[2022-04-20] MEDS: BALSALAZIDE DISODIUM 750 MG CAPSULE PO SCH ×2 (17:52→23:11)
[2022-04-20] MEDS: CYCLOBENZAPRINE 10 MG TAB PO SCH (19:58)
[2022-04-20] MEDS: TOPIRAMATE 25 MG TAB PO SCH (19:59)
[2022-04-20] MEDS: ASPIRIN 81 MG PO SCH (19:59)
[2022-04-20] MEDS: FAMOTIDINE 20 MG TAB PO SCH (19:59)
[2022-04-20] MEDS: PRAMIPEXOLE 0.5 MG TAB PO SCH (19:59)
[2022-04-20] MEDS ORDERED: traZODone HCL 50 MG TAB PO SCH (21:00)
[2022-04-20] MEDS ORDERED: MONTELUKAST 10 MG TAB PO SCH (21:00)
[2022-04-20] MEDS ORDERED: GABAPENTIN 400 MG CAP PO SCH (21:00)
[2022-04-20] MEDS ORDERED: diphenhydrAMINE 25 MG CAP PO SCH (21:00)
[2022-04-21] MEDS: SODIUM CHLORIDE 0.9% 1,000 ML in EMPTY BAG 1 BAG IV SCH ×2 (06:46→12:05)
[2022-04-21] MEDS: ASPIRIN 81 MG PO SCH (08:08)
[2022-04-21] MEDS: FAMOTIDINE 20 MG TAB PO SCH (08:08)
[2022-04-21] MEDS: CYCLOBENZAPRINE 10 MG TAB PO SCH (08:08)
[2022-04-21] MEDS: TOPIRAMATE 25 MG TAB PO SCH (08:08)
[2022-04-21] MEDS: NICOTINE 21MG/24HR PATCH TRANSDERM SCH (08:09)
[2022-04-21] MEDS: BALSALAZIDE DISODIUM 750 MG CAPSULE PO SCH (08:09)
[2022-04-21] MEDS: PRAMIPEXOLE 0.5 MG TAB PO SCH (08:09)
[2022-04-21] MEDS ORDERED: METOPROLOL TARTRATE 25 MG TAB PO SCH (09:00)
[2022-04-21] MEDS ORDERED: MULTIVITAMINS, THERA 1 EACH TAB PO SCH (09:00)
[2022-04-21] MEDS ORDERED: GABAPENTIN 300 MG CAP PO SCH (09:00)
[2022-04-21] MEDS ORDERED: CLOPIDOGREL 75 MG TAB PO SCH (09:00)
[2022-04-21] MEDS ORDERED: VITAMIN C PO SCH (09:00)
[2022-04-21] MEDS ORDERED: ATORVASTATIN 40 MG TAB PO SCH (09:00)
[2022-04-21] MEDS ORDERED: CRANBERRY PO SCH (09:00)
[2022-04-21] MEDS ORDERED: FOLIC ACID 1 MG TAB PO SCH (09:00)
[2022-04-21] MEDS ORDERED: CHOLECALCIFEROL 25 MCG (1000 IU) TABLET PO SCH (09:00)
[2022-04-21 10:40] VITALS: TEMP 98
[2022-04-21 11:57] LABS: African American GFR (CKD) >90 (>60 ml/min/1.73 sqM); Non-African American GFR(CKD) 85 (>60 ml/min/1.73 sqM)
[2022-04-21 12:02] VITALS: BP 105/67; PULSE 74; RESP 17
--- NOTE | 2022-04-21 13:10 | IR ---
EXAMINATION TYPE: IR stent intravas non coronary DATE OF EXAM: 04/20/2022 COMPARISON: NONE HISTORY: Fluoroscopy time. Fluoroscopy was provided to the referring clinician.
--- NOTE | 2022-04-21 13:16 | P.DS ---
Providers Attending physician: Moses Richardson Primary care physician: Re Hernandez MD Hospital Course: The patient is a pleasant 66-year-old female patient was underwent yesterday successful left subclavian stenting with a good angiographic results from the right groin approach. She was seen this morning. She is asymptomatic. She has great left radial pulse. The right groin soft and nontender and without no bruises. The patient is going to be discharged home on dual antiplatelet therapy and statin and I'll follow-up with the patient next week in the office Plan - Discharge Summary New Discharge Prescriptions: Continue Aspirin EC [Ecotrin Low Dose] 81 mg PO BID diphenhydrAMINE [Benadryl] 25 mg PO HS Montelukast [Singulair] 10 mg PO HS Folic Acid 1 mg PO DAILY Cholecalciferol [Vitamin D3 (25 Mcg = 1000 Iu)] 2,000 unit PO DAILY Albuterol Inhaler [Ventolin Hfa Inhaler] 2 puff INHALATION Q4H PRN PRN Reason: Shortness Of Breath Clopidogrel [Plavix] 75 mg PO DAILY Pramipexole [Mirapex] 0.5 mg PO BID Metoprolol Tartrate [Lopressor] 25 mg PO QAM FLUoxetine HCL [PROzac] 30 mg PO DAILY PRN PRN Reason: depressions Multivit with Calcium,Iron,Min [Women's Multivitamin] 1 each PO DAILY Atorvastatin Calcium [Lipitor] 40 mg PO DAILY clonazePAM [KlonoPIN] 0.5 mg PO BID PRN PRN Reason: Anxiety Gabapentin [Neurontin] 600 mg PO QAM Aspirin/Acetaminophen/Caffeine [Excedrin Migraine Caplet] 1 each PO DIRECTED PRN PRN Reason: Migraine Headache Famotidine [Pepcid] 20 mg PO BID Cranberry + Vitamin C 1 tab PO DAILY Gabapentin 1,200 mg PO HS Mesalamine [Lialda] 2.4 gm PO QAM Orphenadrine [Norflex] 100 mg PO Q12H traZODone HCL [Desyrel] 100 mg PO HS Topiramate [Trokendi Xr] 100 mg PO HS Omalizumab [Xolair] 300 mg SQ DIRECTED Discontinued metFORMIN HCL [Glucophage] 1,000 mg PO BID Discharge Medication List Albuterol Inhaler [Ventolin Hfa Inhaler] 2 puff INHALATION Q4H PRN 08/19/14 [History] Aspirin EC [Ecotrin Low Dose] 81 mg PO BID 08/19/14 [History] Cholecalciferol [Vitamin D3 (25 Mcg = 1000 Iu)] 2,000 unit PO DAILY 08/19/14 [History] Folic Acid 1 mg PO DAILY 08/19/14 [History] Montelukast [Singulair] 10 mg PO HS 08/19/14 [History] diphenhydrAMINE [Benadryl] 25 mg PO HS 08/19/14 [History] Clopidogrel [Plavix] 75 mg PO DAILY 09/24/14 [History] Atorvastatin Calcium [Lipitor] 40 mg PO DAILY 02/05/20 [History] FLUoxetine HCL [PROzac] 30 mg PO DAILY PRN 02/05/20 [History] Metoprolol Tartrate [Lopressor] 25 mg PO QAM 02/05/20 [History] Multivit with Calcium,Iron,Min [Women's Multivitamin] 1 each PO DAILY 02/05/20 [History] Pramipexole [Mirapex] 0.5 mg PO BID 02/05/20 [History] Aspirin/Acetaminophen/Caffeine [Excedrin Migraine Caplet] 1 each PO DIRECTED PRN 02/24/20 [History] Gabapentin [Neurontin] 600 mg PO QAM 02/24/20 [History] clonazePAM [KlonoPIN] 0.5 mg PO BID PRN 02/24/20 [History] Famotidine [Pepcid] 20 mg PO BID 02/15/22 [History] traZODone HCL [Desyrel] 100 mg PO HS 02/15/22 [History] Cranberry + Vitamin C 1 tab PO DAILY 03/22/22 [History] Gabapentin 1,200 mg PO HS 03/22/22 [History] Mesalamine [Lialda] 2.4 gm PO QAM 03/22/22 [History] Orphenadrine [Norflex] 100 mg PO Q12H 03/22/22 [History] Topiramate [Trokendi Xr] 100 mg PO HS 03/22/22 [History] Omalizumab [Xolair] 300 mg SQ DIRECTED 03/25/22 [History] Follow up Appointment(s)/Referral(s): Moses Richardson MD [STAFF PHYSICIAN] - 05/05/22 4:15 pm ( (earliest appointment) at [place] location phone # [phone])
== END 2022-04-21 14:26 | disposition home or self-care (01) ==
LOC: CATHCVL 06:59 → 3SCARD 10:50 → CATHCVL 04-21 14:26
PROVIDERS: ATTEND Internal Medicine Interventional Cardiology
DX: I25.10 Atherosclerotic heart disease of native coronary artery without angina pectoris (principal); I10 Essential (primary) hypertension; E78.5 Hyperlipidemia, unspecified; E11.9 Type 2 diabetes mellitus without complications; I73.9 Peripheral vascular disease, unspecified; F17.210 Nicotine dependence, cigarettes, uncomplicated; Z82.49 Family history of ischemic heart disease and other diseases of the circulatory system; Z95.1 Presence of aortocoronary bypass graft; Z79.899 Other long term (current) drug therapy
CPT/HCPCS: 94640; 94760; 76937; 37236; 37252; 80048; 82565; 85025; C1894 ×2; C1769 ×6; C1876; C1725; C1753; S4990 ×2; J2001; J1644; J1170; Q9966

== ENCOUNTER 2024-09-24 08:22 | Day surgery (SDC) | payer OTHER ==
[2024-09-24] MEDS: IV FLUID CONTINUATION 1,000 ML IV ONE (08:55)
[2024-09-24] MEDS: ASPIRIN 325 MG TAB PO STA (08:57)
[2024-09-24] MEDS: SODIUM CHLORIDE 0.9% 1,000 ML in EMPTY BAG 1 BAG IV SCH ×2 (08:58→18:49)
[2024-09-24 09:16] LABS: Glucose,Whole Blood 146 mg/dL (70-110)
[2024-09-24 09:25] LABS: Basophils # (A) 0.06 10*3/uL (0.00-0.10); Basophils % (A) 0.6 %; Eosinophils # (A) 0.36 10*3/uL (0.04-0.35); Eosinophils % (A) 3.7 %; HCT 42.6 % (37.2-46.3); HGB 13.9 g/dL (12.0-15.0); Lymphocytes # (A) 3.11 10*3/uL (0.90-5.00); MCH 31.1 pg (27.0-32.0); MCHC 32.6 g/dL (32.0-37.0); MCV 95.3 fL (80.0-97.0); Mean Platelet Volume 9.5 fL (9.5-12.2); Monocytes # (A) 0.67 10*3/uL (0.20-1.00); Monocytes % (A) 6.9 %; Neutrophils # (A) 5.49 10*3/uL (1.80-7.70); Neutrophils % (A) 56.5 %; Platelet Count 279 10*3/uL (140-440); RBC 4.47 10*6/uL (4.10-5.20); WBC 9.72 10*3/uL (4.50-10.00)
[2024-09-24 09:41] LABS: African American GFR (CKD) 62 (>60 ml/min/1.73 sqM); Anion Gap 7 mmol/L; Blood Urea Nitrogen 15 mg/dL (7-17); Calcium 9.8 mg/dL (8.4-10.2); Carbon Dioxide 29 mmol/L (22-30); Chloride 104 mmol/L (98-107); Glucose 151 mg/dL (74-99); Non-African American GFR(CKD) 54 (>60 ml/min/1.73 sqM); Potassium 3.8 mmol/L (3.5-5.1); Sodium 140 mmol/L (137-145)
[2024-09-24] MEDS: HEPARIN SODIUM,PORCINE (1 ML) 2,500 UNIT in SODIUM CHLORIDE 0.9% 250 ML IRRIGATION PRN (11:08)
[2024-09-24] MEDS: HEPARIN SODIUM,PORCINE 10,000 UNIT in SODIUM CHLORIDE 0.9% 1,000 ML IRRIGATION PRN (11:08)
[2024-09-24] MEDS: MIDAZOLAM 2 MG/2 ML VIAL IVP ONE ×2 (12:47→14:07)
[2024-09-24] MEDS: LIDOCAINE 1% INJ 10MG/ML (20 ML MDV) SQ ONE (12:55)
[2024-09-24] MEDS: fentaNYL (PF) 50 MCG/ML 2 ML AMP IVP ONE (12:59)
[2024-09-24] MEDS: HEPARIN SODIUM 1,000 UN/ML (10ML VL) IVP ONE (13:17)
[2024-09-24] MEDS: CLOPIDOGREL 75 MG TAB PO ONE (13:20)
[2024-09-24] MEDS: NITROGLYCERIN 1000MCG/10ML SYRINGE INTRACORON ONE (14:27)
[2024-09-24] MEDS: IOPAMIDOL-370 100ML BTL INJ ONE ×2 (14:38→15:12)
[2024-09-24] MEDS: SODIUM CHLORIDE 0.9% 1,000 ML IV ONE (14:46)
[2024-09-24] MEDS: niCARdipine Syringe (1,000 mcg/10 mL) INTRACORON ONE (14:54)
[2024-09-24] MEDS ORDERED: ALBUTEROL NEBULIZED 2.5 MG/3 ML INHALATION PRN (15:03)
[2024-09-24] MEDS ORDERED: ZOLPIDEM 5 MG TAB PO PRN (15:04)
[2024-09-24] MEDS ORDERED: MAG HYDROX/AL HYDROX/SIMETH 30 ML CUP PO PRN (15:04)
[2024-09-24] MEDS ORDERED: RX INFO: IV CONTRAST WAS GIVEN 1 EACH MISC MISCELLANE PRN (15:04)
[2024-09-24] MEDS ORDERED: ATROPINE SULFATE 0.1 MG/ML 10ML SYRINGE IV PRN (15:04)
[2024-09-24] MEDS ORDERED: NITROGLYCERIN SL TABS 0.4 MG TAB SUBLINGUAL PRN (15:04)
[2024-09-24] MEDS ORDERED: NON FORMULARY DRUG (Omalizumab 150 MG Each) SQ SCH (15:15)
--- NOTE | 2024-09-24 15:44 | P.PCN ---
Date of Procedure: 09/24/24 Operative Findings: CARDIAC CATHETERIZATION PERFORMING PHYSICIAN: Moses Richardson MD, [facility] PROCEDURE PERFORMED: 1. Selective right and left coronary angiogram and STEWART to LAD angiogram and SVG to LCx angiogram along with left heart catheterization 2. Successful PCI of the distal RCA using 3.5 x 48 mm Xience SHAR with an excellent angiographic results and adjunctive use of atherectomy and IVUS 3. Gradient measurement across the right common iliac artery 4. Ultrasound-guided access of the right common femoral artery and selective right common femoral artery and INDICATION: Symptomatic 59-year-old female patient with symptoms of chest discomfort and known history of CAD with prior surgical revascularization and percutaneous revascularization COMPLICATION: None APPROACH: Right common femoral artery LEVEL OF SEDATION: Moderate with sedation in length of 180 minutes PROCEDURE DESCRIPTION: After obtaining an informed consent, the patient was brought to cardiac mechanical laboratory technician. Local anesthesia was performed using lidocaine subcutaneously. Selective right and left coronary angiogram using a 6-Omani JR4 and JL catheters. Following that we did left heart catheterization using the JR4 catheter The right common femoral artery was cannulated using micropuncture technique under ultrasound guidance, the guidewire passed easily, following that we advanced a 6 Omani sheath dilator assembly, the wire and dilator were removed and sheath was flushed. After that I did selective left and right coronary angiogram using JL 4 and JR4 catheters. The SVG to LCx angiogram was performed using the JR4 catheter. The STEWART to LAD angiogram was performed using 4 Omani angulated glide catheter. After that I decided to intervene on the RCA. Anticoagulation continued using heparin with continuous ACT monitoring and the patient was already receiving Plavix. I gave the patient additional 150 mg of Plavix. Subsequently I did engage the RCA using an AL 0.75 guiding catheter. Wiring the RCA distally was difficult but subsequently I was able to wire the right coronary artery using the whisper wire with the backup support of Corsair catheter. Attempting advancing initially 1.5 and subsequently 1 mm balloon was unsuccessful and throughout the procedure the guide and the wire came out. Giving the extreme support needed I decided to change my system into a 7 Omani system. At that point the 11 cm 6 Omani sheath exchanged over an 035 wire into a 7 Omani 23 cm Brite tip sheath over a 035 wire. There was a concern about an iliac lesion on the right side and I had to use a Glidewire. After that I access and engage the right coronary artery using a 7 Omani AL 0.75 guiding catheter. Wiring the RCA again using a whisper wire was successful. Attempting ballooning the RCA was unsuccessful in spite of using GuideLiner. At that point I decided to do atherectomy. Attempting advancing the Corsair catheter to cross the lesion in the distal right coronary artery was unsuccessful but the catheter was advanced all the way and then subsequently the whisper wire was pulled out and I advanced the Viper wire. After that atherectomy was performed on the RCA. Please note before atherectomy was performed I placed a pacer wire in the right ventricle and a set of the pacer to be at the heart rate of 60 and 5 of AMP. Subsequently atherectomy was performed using multiple rounds on only low speed. After that balloon angioplasty was performed using initially 2 mm balloon and subsequently 3 mm balloon. Both balloons were noncompliant. Finally I did IVUS of the RCA which showed a diameter between 3.5 to 3.75 mm. I did advance a 3.5 x 48 mm stent where the stent was positioned under fluoroscopy guidance with adjunctive use of GuideLiner in spite of performing atherectomy before. The stent subsequently was deployed and I did postdilated the stent using 4 mm NC balloon. Final angiogram showed good angiographic results with ROXANE-3 flow and the patient tolerated the procedure very well. After that I did a gradient across the right common iliac artery and that showed a gradient around 27 mmHg to 30 mmHg after that it exchanged my long sheath into short sheath using a 035 wire before I did selective right common femoral artery angiogram. The procedure was completed with no complication The procedure was completed there was no complication. SELECTIVE CORONARY ANGIOGRAM: The right coronary artery: Large-caliber vessel and a dominant vessel with a stented mid segment appeared to be patent and occluded distal RCA Left main: Has 50% diffuse disease The left circumflex: Is occluded in the very proximal portion The left anterior descending artery: Is also occluded in the proximal to midportion The STEWART to LAD is patent The SVG to OM has critical lesion at the distal anastomosis HEMODYNAMICS: The LVEDP was about 20 mmHg with no significant gradient across aortic valve CONCLUSION: 1. Severe triple-vessel CAD 2. Patent STEWART to LAD 3. Critical disease involving the distal anastomosis of SVG to LCx 4. Occluded RCA which is unprotected distally. I did perform successful PCI of the RCA. Previous stent in the mid RCA is patent 5. Severe disease involving the ostial right common iliac POSTPROCEDURE MANAGEMENT: PCI of the SVG to LCx Assess the need to perform EMBEDDED CASE MANAGER of the right iliac artery
[2024-09-24] MEDS ORDERED: ASPIRIN-ACET-CAFF 250-250-65MG 1 EACH TAB PO PRN (18:00)
[2024-09-24] MEDS: CYCLOBENZAPRINE 10 MG TAB PO SCH (19:44)
[2024-09-24] MEDS: traZODone HCL 100 MG TAB PO SCH (19:44)
[2024-09-24] MEDS: FAMOTIDINE 20 MG TAB PO SCH (19:44)
[2024-09-24] MEDS: MONTELUKAST 10 MG TAB PO SCH (19:44)
[2024-09-24] MEDS: diphenhydrAMINE 25 MG CAP PO SCH (19:44)
[2024-09-24] MEDS: TOPIRAMATE 25 MG TAB PO SCH (19:44)
[2024-09-24] MEDS: GABAPENTIN 400 MG CAP PO SCH (19:44)
[2024-09-24] MEDS: ASPIRIN 81 MG PO SCH (19:44)
[2024-09-24] MEDS: clonazePAM 0.5 MG TAB PO PRN (19:52)
[2024-09-24] MEDS: DESVENLAFAXINE SUCCINATE 50 MG TAB.ER.24H PO SCH (19:53)
[2024-09-24 20:06] LABS: Glucose,Whole Blood 192 mg/dL (70-110)
[2024-09-25 00:47] VITALS: RESP 18
[2024-09-25 06:17] LABS: Glucose,Whole Blood 157 mg/dL (70-110)
[2024-09-25 07:12] LABS: African American GFR (CKD) 65 (>60 ml/min/1.73 sqM); Non-African American GFR(CKD) 56 (>60 ml/min/1.73 sqM)
[2024-09-25] MEDS: PRAMIPEXOLE 0.25 MG TAB PO SCH (08:38)
[2024-09-25] MEDS: GABAPENTIN 300 MG CAP PO SCH (08:38)
[2024-09-25] MEDS: ATORVASTATIN 40 MG TAB PO SCH (08:38)
[2024-09-25] MEDS: glipiZIDE 5 MG TAB PO SCH (08:39)
[2024-09-25] MEDS: FOLIC ACID 1 MG TAB PO SCH (08:39)
[2024-09-25] MEDS: METOPROLOL TARTRATE 25 MG TAB PO SCH (08:39)
[2024-09-25] MEDS: CLOPIDOGREL 75 MG TAB PO SCH (08:39)
[2024-09-25] MEDS: BALSALAZIDE DISODIUM 750 MG CAPSULE PO SCH (08:39)
[2024-09-25] MEDS ORDERED: VITAMIN C PO SCH (09:00)
[2024-09-25] MEDS ORDERED: CRANBERRY PO SCH (09:00)
[2024-09-25 10:50] VITALS: TEMP 97.9
[2024-09-25 11:09] LABS: Glucose,Whole Blood 200 mg/dL (70-110)
--- NOTE | 2024-09-25 11:42 | P.DS ---
Providers Attending physician: Moses Richardson Consults: 09/24/24 15:05 Consult Physician Routine Consulting Provider: [facility] Consult Reason/Comments: Post Interventional patient Do you want consulting provider notified?: Already Contacted Primary care physician: Stated None Hospital Course: This is a 59-year-old female who underwent cardiac catheterization yesterday with Dr. Richardson. Patient underwent PCI of the distal RCA. Patient was also found to have critical disease involving the distal anastomosis of the SVG to the circumflex and severe disease involving ostial right common iliac. Patient examined postprocedure with no complaints of chest pain or shortness of breath. Vital signs are stable. The patient was deemed stable for discharge home today from a cardiac standpoint on dual antiplatelet therapy. Please see EMR for further hospital course details. Discharge diagnosis Coronary artery disease, status post PCI of distal RCA Nurse practitioner note has been reviewed by physician. Signing provider agrees with the documented findings, assessment, and plan of care documented by CHANGE AGENT as a scribe. Plan - Discharge Summary Discharge Rx Participant: Yes New Discharge Prescriptions: No Action Aspirin EC [Ecotrin Low Dose] 81 mg PO BID diphenhydrAMINE [Benadryl] 25 mg PO HS Montelukast [Singulair] 10 mg PO HS Folic Acid 1 mg PO DAILY Albuterol Inhaler [Ventolin Hfa Inhaler] 2 puff INHALATION Q4H PRN PRN Reason: Shortness Of Breath Clopidogrel [Plavix] 75 mg PO DAILY Pramipexole [Mirapex] 0.5 mg PO DAILY Metoprolol Tartrate [Lopressor] 25 mg PO QAM Atorvastatin Calcium [Lipitor] 40 mg PO DAILY clonazePAM [KlonoPIN] 0.5 mg PO HS PRN PRN Reason: Anxiety Gabapentin [Neurontin] 600 mg PO QAM Aspirin/Acetaminophen/Caffeine [Excedrin Migraine Caplet] 1 each PO DIRECTED PRN PRN Reason: Migraine Headache Famotidine [Pepcid] 20 mg PO BID Cranberry + Vitamin C 1 tab PO DAILY Gabapentin 1,200 mg PO HS Mesalamine [Lialda] 2.4 gm PO QAM Orphenadrine [Norflex] 100 mg PO Q12H glipiZIDE [Glipizide] 5 mg PO DAILY Dibetic Shot (Unk) 1 injection INJ WEEKLY Desvenlafaxine [Desvenlafaxine ER] 50 mg PO HS traZODone HCL [Desyrel] 100 mg PO HS Topiramate [Trokendi Xr] 100 mg PO HS Omalizumab [Xolair] 300 mg SQ Q14D Discharge Medication List Albuterol Inhaler [Ventolin Hfa Inhaler] 2 puff INHALATION Q4H PRN 08/19/14 [History] Aspirin EC [Ecotrin Low Dose] 81 mg PO BID 08/19/14 [History] Folic Acid 1 mg PO DAILY 08/19/14 [History] Montelukast [Singulair] 10 mg PO HS 08/19/14 [History] diphenhydrAMINE [Benadryl] 25 mg PO HS 08/19/14 [History] Clopidogrel [Plavix] 75 mg PO DAILY 09/24/14 [History] Atorvastatin Calcium [Lipitor] 40 mg PO DAILY 02/05/20 [History] Metoprolol Tartrate [Lopressor] 25 mg PO QAM 02/05/20 [History] Pramipexole [Mirapex] 0.5 mg PO DAILY 02/05/20 [History] Aspirin/Acetaminophen/Caffeine [Excedrin Migraine Caplet] 1 each PO DIRECTED PRN 02/24/20 [History] Gabapentin [Neurontin] 600 mg PO QAM 02/24/20 [History] clonazePAM [KlonoPIN] 0.5 mg PO HS PRN 02/24/20 [History] Famotidine [Pepcid] 20 mg PO BID 02/15/22 [History] traZODone HCL [Desyrel] 100 mg PO HS 02/15/22 [History] Cranberry + Vitamin C 1 tab PO DAILY 03/22/22 [History] Gabapentin 1,200 mg PO HS 03/22/22 [History] Mesalamine [Lialda] 2.4 gm PO QAM 03/22/22 [History] Orphenadrine [Norflex] 100 mg PO Q12H 03/22/22 [History] Topiramate [Trokendi Xr] 100 mg PO HS 03/22/22 [History] Omalizumab [Xolair] 300 mg SQ Q14D 03/25/22 [History] Desvenlafaxine [Desvenlafaxine ER] 50 mg PO HS 09/20/24 [History] Dibetic Shot (Unk) 1 injection INJ WEEKLY 09/20/24 [History] glipiZIDE [Glipizide] 5 mg PO DAILY 09/20/24 [History] Follow up Appointment(s)/Referral(s): Moses Richardson MD [STAFF PHYSICIAN] - 1 Week (OFFICE WILL CALL PATIENT WITH A FOLLOW UP APPOINTMENT DATE/TIME. )
[2024-09-25 12:55] VITALS: BMI 29.3
[2024-09-25 13:02] VITALS: BP 120/65; PULSE 71
[2024-09-26] MEDS ORDERED: ASPIRIN 81 MG PO SCH (09:00)
[2024-10-01] MEDS ORDERED: [UNRECOGNIZED DRUG - OTHER] INJ SCH (09:00)
== END 2024-09-25 14:00 | disposition home health service (06) ==
LOC: CATHCVL 08:22 → 3SCARD 15:00 → CATHCVL 09-25 14:00
PROVIDERS: ATTEND Internal Medicine Interventional Cardiology
DX: I25.10 Atherosclerotic heart disease of native coronary artery without angina pectoris (principal); I10 Essential (primary) hypertension; E78.5 Hyperlipidemia, unspecified; I73.9 Peripheral vascular disease, unspecified; E11.9 Type 2 diabetes mellitus without complications; F17.200 Nicotine dependence, unspecified, uncomplicated; Z79.02 Long term (current) use of antithrombotics/antiplatelets; Z79.84 Long term (current) use of oral hypoglycemic drugs; Z79.899 Other long term (current) drug therapy; Z79.82 Long term (current) use of aspirin; Z88.1 Allergy status to other antibiotic agents; Z88.8 Allergy status to other drugs, medicaments and biological substances
CPT/HCPCS: 92978; 93459; 80048; 82565; 85025; 99152; 99153; C9602; C1769 ×6; C1887 ×2; C1725 ×5; C1894 ×3; C1753; C1874 ×2; C1751; C1724; J2250; J1644 ×3; J2003; J3010; Q9967; J2305

== ENCOUNTER 2024-10-22 09:15 | Day surgery (SDC) | payer OTHER ==
[~2024-10-22 09:15] MED LIST changes: +HEPARIN SODIUM,PORCINE (1 ML) 2,500 UNIT in SODIUM CHLORIDE 0.9% 250 ML IRRIGATION PRN; +HEPARIN SODIUM,PORCINE 10,000 UNIT in SODIUM CHLORIDE 0.9% 1,000 ML IRRIGATION PRN
[2024-10-22 10:20] LABS: Glucose,Whole Blood 146 mg/dL (70-110)
[2024-10-22] MEDS: SODIUM CHLORIDE 0.9% 1,000 ML in EMPTY BAG 1 BAG IV SCH ×2 (10:21→18:49)
[2024-10-22] MEDS: IV FLUID CONTINUATION 1,000 ML IV ONE (10:33)
[2024-10-22 10:40] LABS: Basophils # (A) 0.06 10*3/uL (0.00-0.10); Basophils % (A) 0.7 %; Eosinophils # (A) 0.33 10*3/uL (0.04-0.35); Eosinophils % (A) 3.6 %; HCT 39.7 % (37.2-46.3); HGB 12.8 g/dL (12.0-15.0); Lymphocytes # (A) 3.53 10*3/uL (0.90-5.00); Lymphocytes % (A) 38.3 %; MCH 30.8 pg (27.0-32.0); MCHC 32.2 g/dL (32.0-37.0); MCV 95.7 fL (80.0-97.0); Mean Platelet Volume 9.6 fL (9.5-12.2); Monocytes # (A) 0.66 10*3/uL (0.20-1.00); Monocytes % (A) 7.2 %; Neutrophils # (A) 4.62 10*3/uL (1.80-7.70); Platelet Count 282 10*3/uL (140-440); RBC 4.15 10*6/uL (4.10-5.20); RDW 13.2 % (11.5-14.5); WBC 9.22 10*3/uL (4.50-10.00)
[2024-10-22 10:46] LABS: African American GFR (CKD) 55 (>60 ml/min/1.73 sqM); Anion Gap 8 mmol/L; Blood Urea Nitrogen 18 mg/dL (7-17); Calcium 9.4 mg/dL (8.4-10.2); Carbon Dioxide 25 mmol/L (22-30); Chloride 106 mmol/L (98-107); Glucose 161 mg/dL (74-99); Non-African American GFR(CKD) 48 (>60 ml/min/1.73 sqM); Potassium 4.1 mmol/L (3.5-5.1); Sodium 139 mmol/L (137-145)
[2024-10-22] MEDS: fentaNYL (PF) 50 MCG/ML 2 ML AMP IVP ONE (12:32)
[2024-10-22] MEDS: MIDAZOLAM 2 MG/2 ML VIAL IVP ONE ×2 (12:32→12:48)
[2024-10-22] MEDS: LIDOCAINE 1% INJ 10MG/ML (20 ML MDV) SQ ONE (12:35)
[2024-10-22] MEDS: SODIUM CHLORIDE 0.9% 500 ML 500 ML IV ONE (12:45)
[2024-10-22] MEDS: HEPARIN SODIUM 1,000 UN/ML (10ML VL) IVP ONE (12:50)
[2024-10-22] MEDS: HEPARIN SODIUM,PORCINE 10,000 UNIT in SODIUM CHLORIDE 0.9% 1,000 ML IRRIGATION PRN (12:56)
[2024-10-22] MEDS: HEPARIN SODIUM,PORCINE (1 ML) 2,500 UNIT in SODIUM CHLORIDE 0.9% 250 ML IRRIGATION PRN (12:56)
[2024-10-22] MEDS: NITROGLYCERIN 1000MCG/10ML SYRINGE INTRACORON ONE (13:03)
[2024-10-22] MEDS: niCARdipine Syringe (1,000 mcg/10 mL) INTRACORON ONE (13:04)
[2024-10-22] MEDS ORDERED: clonazePAM 0.5 MG TAB PO PRN (13:29)
[2024-10-22] MEDS ORDERED: CYCLOBENZAPRINE 10 MG TAB PO PRN (13:29)
[2024-10-22] MEDS ORDERED: ASPIRIN-ACET-CAFF 250-250-65MG 1 EACH TAB PO PRN (13:29)
[2024-10-22] MEDS ORDERED: NALOXONE 0.4 MG/ML 1 ML VIAL IVP PRN (13:30)
[2024-10-22] MEDS: TICAGRELOR 90 MG TAB PO ONE (13:46)
[2024-10-22] MEDS: IOPAMIDOL-370 100ML BTL INTRATHECA ONE ×2 (13:46)
--- NOTE | 2024-10-22 14:12 | IR ---
EXAMINATION TYPE: IR stent intravas non coronary Intraoperative/procedural fluoroscopic services were provided. CLINICAL INDICATION:Female, 59 years old with history of RT LEG PAIN; , [facility] FINDINGS: Multiple fluoroscopic images from or right lower extremity stent placement. Total fluoroscopy time is 14.3 min. DAP: 42.8 Gycm2 Please see the operative/procedural note for further details. [facility], , 10/22/2024 2:09 PM
[2024-10-22] MEDS: hydrALAZINE HCL 20 MG/ML 1 ML VIAL IVP STA (16:40)
[2024-10-22] MEDS: IPRATROPIUM-ALBUTEROL 3 ML NEB INHALATION STA (16:46)
[2024-10-22] MEDS: ALBUTEROL NEBULIZED 2.5 MG/3 ML INHALATION PRN (16:50)
[2024-10-22] MEDS: ASPIRIN 325 MG TAB PO STA (16:58)
[2024-10-22] MEDS: PRAMIPEXOLE 0.25 MG TAB PO SCH (18:48)
[2024-10-22 19:57] LABS: Glucose,Whole Blood 128 mg/dL (70-110)
[2024-10-22] MEDS: glipiZIDE 5 MG TAB PO SCH (21:03)
[2024-10-22] MEDS: GABAPENTIN 400 MG CAP PO SCH (21:03)
[2024-10-22] MEDS: DESVENLAFAXINE SUCCINATE 50 MG TAB.ER.24H PO SCH (21:03)
[2024-10-22] MEDS: METOPROLOL TARTRATE 12.5 MG TAB PO SCH (21:03)
[2024-10-22] MEDS: TOPIRAMATE 25 MG TAB PO SCH (21:03)
[2024-10-22] MEDS: FAMOTIDINE 20 MG TAB PO SCH (21:03)
[2024-10-22] MEDS: traZODone HCL 50 MG TAB PO SCH (21:03)
[2024-10-22] MEDS: BALSALAZIDE DISODIUM 750 MG CAPSULE PO SCH (21:03)
[2024-10-22] MEDS: MONTELUKAST 10 MG TAB PO SCH (21:03)
--- NOTE | 2024-10-22 21:45 | P.PCN ---
Date of Procedure: 10/22/24 Operative Findings: Percutaneous coronary intervention Performing physician Moses Richardson MD Procedure performed 1. Successful stenting of the distal anastomosis of SVG to OM using 2.5 x 15 mm Xience SHAR with an excellent angiographic results and reduction of stenosis from 90% to 0% with adjunctive use of IVUS 2. An angiogram of the SVG to OM 3. Ultrasound-guided access of the right common femoral artery Indication Symptomatic 59-year-old female patient with no CAD who continues to have chest discomfort and noted to have critical disease involving the SVG to OM. Please refer to prior heart catheterization was performed few weeks ago Complication None Level of sedation Moderate to sedation length of 30 minutes Procedure description After obtaining informed consent the patient was brought to the cardiac Repulping Supervisor. The right common femoral artery was cannulated using a puncture technique under ultrasound guidance the micropuncture wire passed easily then I placed a 6 Faroese 11 cm sheath at the right common femoral artery. Anticoagulation was initiated using heparin with continuous ACT monitoring. Subsequently I did engage the SVG to OM using a AL 1 guiding catheter. Subsequently an angiogram was performed and confirmed the critical disease involving the distal anastomosis. I did wired the SVG using a whisper wire. I did predilatation using 2.0 mm balloon subsequently I deployed a 2.5 x 15 mm stent which was postdilated using 2.5 mm NC balloon with angiogram showing excellent angiographic results and IVUS showed good results as well and the procedure was completed with no complication Postprocedure management Dual antiplatelet therapy using aspirin for at least 6 months Aggressive cholesterol control Smoking cessation Follow-up with the patient
--- NOTE | 2024-10-22 21:48 | P.PCN ---
Date of Procedure: 10/22/24 Operative Findings: Percutaneous peripheral arterial intervention Performing physician Mosse iRchardson MD Procedure performed 1. Successful stenting of the right common iliac artery using 7.0 x 59 mm iCAST stent with an excellent angiographic results and reduction of stenosis from 90% to 0% 2. Adjunctive use of IVUS and lithotripsy balloon 3. 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 After the PCI was performed, I did exchange my 11 cm 60 Croatian sheath into a 7 Croatian 23 cm sheath using 035 stiff Glidewire. Subsequently I did exchange my 035 wire in 2013 wire and that was a [place] [facility] wire. 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 IVUS revealed a diameter around 7 mm with heavily calcified vessel. Shockwave/lithotripsy balloon was performed using 7 mm balloon before I deployed 7.0 x 59 mm iCAST balloon expandable stent where the stent was positioned under fluoroscopy guidance and deployed under fluoroscopy guidance was final angiogram showed good angiographic results and the procedure was completed with no complication. Postprocedure management Dual antiplatelet therapy Aggressive cholesterol control Smoking cessation Follow-up with the patient
[2024-10-22] MEDS: NICOTINE 21MG/24HR PATCH TRANSDERM SCH (22:32)
[2024-10-23 05:57] LABS: Glucose,Whole Blood 166 mg/dL (70-110)
[2024-10-23 07:50] VITALS: BP 116/66; PULSE 79; RESP 22; TEMP 98.3
[2024-10-23] MEDS ORDERED: BALSALAZIDE DISODIUM 750 MG CAPSULE PO SCH (08:00)
[2024-10-23] MEDS: ASPIRIN 81 MG PO SCH (08:41)
[2024-10-23] MEDS: LORATADINE 10 MG TAB PO SCH (08:41)
[2024-10-23] MEDS: CHOLECALCIFEROL 125 MCG (5000 IU) TABLET PO SCH (08:42)
[2024-10-23] MEDS: FOLIC ACID 1 MG TAB PO SCH (08:42)
[2024-10-23] MEDS: ATORVASTATIN 40 MG TAB PO SCH (08:42)
[2024-10-23 08:45] LABS: African American GFR (CKD) 72 (>60 ml/min/1.73 sqM); Non-African American GFR(CKD) 63 (>60 ml/min/1.73 sqM)
[2024-10-23] MEDS ORDERED: CRANBERRY PO SCH (09:00)
[2024-10-23] MEDS ORDERED: VITAMIN C PO SCH (09:00)
--- NOTE | 2024-10-23 10:52 | P.DS ---
Providers Attending physician: Moses Richardson Primary care physician: Stated None Hospital Course: The patient is a pleasant 59-year-old female patient who underwent yesterday successful PCI of the SVG to OM along with successful angioplasty and stenting of the right common iliac artery with good angiographic results The patient was seen and evaluated this morning. The patient is asymptomatic and hemodynamically stable. The right groin is soft and nontender with no bruises. The patient is going to be discharged home and I will follow-up with the patient next week in the office Plan - Discharge Summary Discharge Rx Participant: No New Discharge Prescriptions: Continue Montelukast [Singulair] 10 mg PO DAILY@2100 Folic Acid 1 mg PO DAILY@0800 Albuterol Inhaler [Ventolin Hfa Inhaler] 2 puff INHALATION Q6H PRN PRN Reason: Shortness Of Breath Clopidogrel [Plavix] 75 mg PO DAILY@2100 Pramipexole [Mirapex] 0.25 mg PO QID Metoprolol Tartrate [Lopressor] 12.5 mg PO DAILY@0800,2100 Atorvastatin Calcium [Lipitor] 40 mg PO DAILY@0800 clonazePAM [KlonoPIN] 0.5 mg PO DAILY PRN PRN Reason: Anxiety Aspirin/Acetaminophen/Caffeine [Excedrin Migraine Caplet] 1 each PO DIRECTED PRN PRN Reason: Migraine Headache Famotidine [Pepcid] 20 mg PO BID@0800,2100 Cranberry + Vitamin C 1 tab PO DAILY Gabapentin 1,200 mg PO DAILY@0800,2100 Orphenadrine [Norflex] 100 mg PO DAILY PRN PRN Reason: Pain Desvenlafaxine [Desvenlafaxine ER] 50 mg PO DAILY@2100 Dulaglutide [Trulicity] 0.75 mg SQ Q7D glipiZIDE [glipiZIDE ER] 5 mg PO DAILY@0800,2100 traZODone HCL [Desyrel] 100 mg PO DAILY@2100 Topiramate [Trokendi Xr] 100 mg PO DAILY@2100 Aspirin 81 mg PO DAILY tab Cholecalciferol [Vitamin D3 (125 Mcg = 5000 Iu)] 125 mcg PO DAILY@0800 Loratadine [Claritin] 10 mg PO DAILY@0800 Mesalamine [Mesalamine Dr] 2.4 gm PO DAILY@0800 Discharge Medication List Albuterol Inhaler [Ventolin Hfa Inhaler] 2 puff INHALATION Q6H PRN 08/19/14 [History] Folic Acid 1 mg PO DAILY@79908/19/14 [History] Montelukast [Singulair] 10 mg PO DAILY@209908/19/14 [History] Clopidogrel [Plavix] 75 mg PO DAILY@209909/24/14 [History] Atorvastatin Calcium [Lipitor] 40 mg PO DAILY@79902/05/20 [History] Metoprolol Tartrate [Lopressor] 12.5 mg PO DAILY@799,209902/05/20 [History] Pramipexole [Mirapex] 0.25 mg PO QID 02/05/20 [History] Aspirin/Acetaminophen/Caffeine [Excedrin Migraine Caplet] 1 each PO DIRECTED PRN 02/24/20 [History] clonazePAM [KlonoPIN] 0.5 mg PO DAILY PRN 02/24/20 [History] Famotidine [Pepcid] 20 mg PO BID@799,209902/15/22 [History] traZODone HCL [Desyrel] 100 mg PO DAILY@209902/15/22 [History] Cranberry + Vitamin C 1 tab PO DAILY 03/22/22 [History] Gabapentin 1,200 mg PO DAILY@799,209903/22/22 [History] Orphenadrine [Norflex] 100 mg PO DAILY PRN 03/22/22 [History] Topiramate [Trokendi Xr] 100 mg PO DAILY@209903/22/22 [History] Desvenlafaxine [Desvenlafaxine ER] 50 mg PO DAILY@209909/20/24 [History] Aspirin 81 mg PO DAILY tab 09/25/24 [Rx] Cholecalciferol [Vitamin D3 (125 Mcg = 5000 Iu)] 125 mcg PO DAILY@79910/21/24 [History] Dulaglutide [Trulicity] 0.75 mg SQ Q7D 10/21/24 [History] Loratadine [Claritin] 10 mg PO DAILY@79910/21/24 [History] Mesalamine [Mesalamine Dr] 2.4 gm PO DAILY@79910/21/24 [History] glipiZIDE [glipiZIDE ER] 5 mg PO DAILY@799,209910/21/24 [History] Follow up Appointment(s)/Referral(s): Moses Richardson MD [STAFF PHYSICIAN] - 10/29/24 1:15 pm (FOLLOW UP APPPOINTMENT MADE. )
[2024-10-23 11:56] LABS: Glucose,Whole Blood 174 mg/dL (70-110)
[2024-10-23] MEDS ORDERED: CLOPIDOGREL 75 MG TAB PO SCH (21:00)
[2024-10-28] MEDS ORDERED: NON FORMULARY DRUG (Dulaglutide [Trulicity] 0.75 MG/0.5 ML Each) SQ SCH (09:00)
== END 2024-10-23 12:49 | disposition home or self-care (01) ==
LOC: CATHCVL 09:15 → 3SCARD 13:30 → CATHCVL 10-23 12:49
PROVIDERS: ATTEND Internal Medicine Interventional Cardiology
DX: I25.10 Atherosclerotic heart disease of native coronary artery without angina pectoris (principal); I73.9 Peripheral vascular disease, unspecified; I10 Essential (primary) hypertension; E78.5 Hyperlipidemia, unspecified; E11.9 Type 2 diabetes mellitus without complications; E11.8 Type 2 diabetes mellitus with unspecified complications; F17.200 Nicotine dependence, unspecified, uncomplicated; Z82.49 Family history of ischemic heart disease and other diseases of the circulatory system; Z88.1 Allergy status to other antibiotic agents; Z79.51 Long term (current) use of inhaled steroids; Z79.02 Long term (current) use of antithrombotics/antiplatelets; Z79.82 Long term (current) use of aspirin; Z79.899 Other long term (current) drug therapy
CPT/HCPCS: 94640; 92978; 37252; 80048; 82565; 85025; 99152; 99153; C9604; C1769 ×5; C1887; C1725 ×3; C1894 ×3; C1874 ×2; C9765; C1753; S4990 ×2; J2250; J0360; J1644 ×3; J2003; J3010; Q9967; J2305